=== PATIENT | female | born 1995 | race Caucasian/White ===

== ENCOUNTER 2017-01-26 22:12 | Emergency (ER) | payer OTHER ==
[~2017-01-26] VITALS: Ht 167.6 cm; Wt 79.9 kg
[~2017-01-26 22:12] MED LIST: DOXYCYCLINE HYC50 MG PO; MOTRIN600 MG PO; NOHOMEMEDS; TRI-SPRINTEC1 EACH PO
[2017-01-26 23:42] VITALS: BP 145/96
== END 2017-01-26 23:58 | disposition home or self-care (01) ==
LOC: EME 22:12 → EXP 22:12
DX: S92.515A Nondisplaced fracture of proximal phalanx of left lesser toe(s), initial encounter for closed fracture (principal); W22.03XA Walked into furniture, initial encounter
CPT/HCPCS: 73630; 99281; 99284